=== PATIENT | male | born 1985 | race Caucasian/White ===

== ENCOUNTER 2017-06-28 07:30 | Day surgery (SDC) | payer OTHER ==
[2017-06-25 17:46] VITALS: BMI 25.7
[2017-06-28] MEDS ORDERED: ONDANSETRON 4 MG/2 ML VIAL ONE (08:46)
[2017-06-28] MEDS ORDERED: DEXAMETHASONE SOD PHOSPHATE 4 MG/1 ML VIAL ONE (08:46)
[2017-06-28] MEDS ORDERED: PROPOFOL 20 ML ONE ×7 (08:46→12:47)
[2017-06-28] MEDS ORDERED: BUPIVACAINE HCL/EPINEPHRINE/PF 30 ML VIAL IJ ONE (09:41)
[2017-06-28] MEDS ORDERED: ROPIVACAINE HCL 0.5% 30ML VIAL ONE (09:53)
[2017-06-28] MEDS ORDERED: DEXAMETHASONE SOD PHOSPHATE/PF 10 MG/ML SDV ONE (09:53)
[2017-06-28] MEDS ORDERED: MIDAZOLAM HCL 2 MG/2 ML SINGLE DOSE VIAL ONE (09:53)
--- NOTE | 2017-06-28 11:12 | HP ---
History & Physical Update - History History: No Change - Physical Physical: No Change - Assessment Assessment: No Change - Plan Plan: No Change
[2017-06-28] MEDS ORDERED: ceFAZolin SODIUM 1 GM VIAL ONE (11:18)
[2017-06-28] MEDS ORDERED: oxyCODONE HCL 5 MG TABLET PO PRN ×3 (11:52→13:02)
[2017-06-28] MEDS ORDERED: ACETAMINOPHEN 325 MG TABLET (FP) PO PRN (11:52)
[2017-06-28] MEDS ORDERED: ONDANSETRON 4 MG/2 ML VIAL IVPUSH PRN (11:52)
[2017-06-28] MEDS ORDERED: MINERAL OIL 25 ML OIL ONE (11:53)
[2017-06-28] MEDS ORDERED: LACTATED RINGERS SOLUTION 1,000 ML IV SCH (12:00)
[2017-06-28] MEDS ORDERED: oxyCODONE HCL 10 MG SUSTAINED ACTING TABLET PO ONE (13:02)
--- NOTE | 2017-06-28 13:07 | DS ---
Physical Examination Vital Signs: Vital Signs Temperature 97.9 F 06/28/17 08:07 Pulse Rate 72 06/28/17 08:07 Respiratory Rate 18 06/28/17 08:07 Blood Pressure 130/74 06/28/17 08:07 O2 Sat by Pulse Oximetry (%) 99 06/28/17 08:09 Discharge Summary Reason For Visit: ANTERIOR DISLOCATION LEFT SHOULDER Condition: Good - Instructions Diet, Activity, Other Instructions: Post Operative Instructions: Shoulder Arthroscopy Dr Willi Ruano 1. Pain following a Shoulder Arthroscopy is variable and can be significant. Some patients will have more pain than others. You have been provided with a prescription for medication that contains a narcotic. You are not allowed to drive while on this medication. Feel free to take medications such as Ibuprofen or Naprosyn in addition to the pain medicine if you do not have any problems with the NSAID class of medications. 2. Apply ice to the shoulder for 15 minutes every hour. You may continue this for as many days as necessary. 3. You may find sleeping on an incline (reclining chair) to be more comfortable for the first few days. 4. You must remain in your sling at all times except when showering. The only exception to this is to allow you to stretch your elbow a few times a day to prevent your hand and forearm from swelling. 5. You are not to use your arm to reach for anything, lift anything or carry anything until instructed otherwise. 6. You may remove the bandages in 48 hours. You may shower at that point. 7. Place band-aids on the sutures after your shower.Do not put any creams or lotions on the incision until after the sutures are removed. 8. Please call the office to schedule a visit to have your sutures removed. 9. If for any reason you believe you may have an infection or are concerned, please feel free to call me. I can be reached through our office number 24 hours a day. 10. Please call our office with any questions; we will review the surgical findings during your post-operative visit. Disposition: HOME - Home Medications Comprehensive Discharge Medication List: Ambulatory Orders Montelukast Na [Singulair -] 10 mg PO HS 06/25/17 Salmeterol/Fluticasone [Advair 250Mcg/50Mcg -] 1 puff PO BID 06/25/17 Albuterol Sulfate Inhaler - [Ventolin Hfa Inhaler -] 1 puff IH ASDIR PRN
--- NOTE | 2017-06-28 13:07 | OP ---
Operative Note - Note: Operative Date: 06/28/17 Pre-Operative Diagnosis: Recurrent left anterior shoulder instability Operation: LEft shoulder arthroscopy, revision labral repair. Remplissage. Post-Operative Diagnosis: Same as Pre-op Surgeon: Willi Ruano [employer] Laborer: Sue Bueno Anesthesiologist/EXCEPTIONAL NEEDS TEACHER: Ozzie Cabrera Anesthesia: General
[2017-06-28 14:02] VITALS: TEMP 98
[2017-06-28 14:07] VITALS: BP 131/77; PULSE 87
--- NOTE | 2017-06-28 16:18 | SURG ---
Surgery Real Property Appraiser Note Real Property Appraiser: Sue Bueno PA-C Date of Service: 06/28/17 Diagnosis: Recurrent left anterior shoulder instability Procedure: LEft shoulder arthroscopy, revision labral repair. Remplissage. I was present for the entirety of the operative procedure. For further detail, please refer to operative report. Visit type - Case Type Case Type: Scheduled Admission - Emergency Emergency Visit: No - New patient This patient is new to me today: Yes Date on this admission: 06/28/17
== END 2017-06-28 14:05 | disposition home or self-care (01) ==
LOC: FASU 07:30
PROVIDERS: ATTEND Orthopaedic Surgery
PROC: 0RNH4ZZ Release Left Acromioclavicular Joint, Percutaneous Endoscopic Approach (ICD-10-PCS; 2017-06-28)
PROC: 0RCK4ZZ Extirpation of Matter from Left Shoulder Joint, Percutaneous Endoscopic Approach (ICD-10-PCS; 2017-06-28)
PROC: 0RQK4ZZ Repair Left Shoulder Joint, Percutaneous Endoscopic Approach (ICD-10-PCS; principal; 2017-06-28 11:39)
DX: M25.312 Other instability, left shoulder (principal)

== ENCOUNTER 2023-05-01 07:08 | Day surgery (SDC) | payer OTHER ==
[2023-04-29 09:55] VITALS: BMI 30.5
[2023-05-01] MEDS ORDERED: PROPOFOL 40 ML ONE (08:36)
[2023-05-01] MEDS ORDERED: MIDAZOLAM HCL 2 MG/2 ML SINGLE DOSE VIAL ONE (08:37)
[2023-05-01] MEDS ORDERED: DEXAMETHASONE SOD PHOSPHATE/PF 10 MG/ML SDV ONE (09:10)
[2023-05-01] MEDS ORDERED: ROPIVACAINE HCL 0.5% 30ML VIAL ONE (09:10)
[2023-05-01] MEDS ORDERED: BUPIVACAINE HCL/EPINEPHRINE/PF 30 ML VIAL IJ ONE (10:10)
[2023-05-01] MEDS ORDERED: DEXAMETHASONE SOD PHOSPHATE 4 MG/1 ML VIAL ONE (12:06)
[2023-05-01] MEDS ORDERED: ceFAZolin SODIUM 1 GM VIAL ONE (12:06)
[2023-05-01] MEDS ORDERED: ONDANSETRON 4 MG/2 ML VIAL ONE (12:06)
[2023-05-01] MEDS ORDERED: TRANEXAMIC ACID 1000 MG/10 ML VIAL ONE (12:06)
[2023-05-01] MEDS ORDERED: KETOROLAC TROMETHAMINE 30 MG/1 ML VIAL ONE (12:27)
[2023-05-01] MEDS ORDERED: ACETAMINOPHEN INJECTION 100 ML IVPB ONE (12:27)
[2023-05-01] MEDS ORDERED: KETOROLAC TROMETHAMINE 30 MG/1 ML VIAL IVPUSH ONE (12:30)
[2023-05-01] MEDS ORDERED: LACTATED RINGERS SOLUTION 1,000 ML IV SCH (12:30)
[2023-05-01] MEDS ORDERED: ONDANSETRON 4 MG/2 ML VIAL IVPUSH PRN (12:30)
[2023-05-01] MEDS ORDERED: ACETAMINOPHEN 1000 MG/100 ML BAG IVPB ONE (12:30)
[2023-05-01] MEDS ORDERED: PROMETHAZINE HCL 25 MG/1 ML VIAL ONE (12:48)
[2023-05-01] MEDS ORDERED: PROMETHAZINE HCL 25 MG/1 ML VIAL IVPB PRN (14:12)
[2023-05-01] MEDS ORDERED: oxyCODONE HCL 5 MG TABLET PO PRN (14:28)
[2023-05-01 15:20] VITALS: RESP 19; TEMP 97.7
[2023-05-01 15:22] VITALS: BP 116/72; PULSE 78
== END 2023-05-01 15:25 | disposition home or self-care (01) ==
LOC: FASU 07:08
PROVIDERS: ATTEND Orthopaedic Surgery
PROC: 0RQJ0ZZ Repair Right Shoulder Joint, Open Approach (ICD-10-PCS; principal; 2023-05-01 10:12)
DX: M25.312 Other instability, left shoulder (principal)
CPT/HCPCS: 73030-TC-LT-FY; 94760; C1713